=== PATIENT | female | born 1975 | race Caucasian/White ===

== ENCOUNTER 2019-02-22 22:27 | Emergency (ER) | payer MEDICARE ==
[~2019-02-22] VITALS: Ht 162.6 cm; Wt 63.5 kg
[~2019-02-22 22:27] MED LIST: BACTRIM DS TAB1 EACH PO; BACTROBAN NASAL1 GM NASAL; CLONAZEPAM 0.50.5 M1 PO; GYNODIOL0.5 MG PO; NEURONTIN 300M300 M2 PO; NORCO 5-325 TA1 EACH PO; PERCOCET 5-3251 EACH PO; PROZAC20 MG PO; SEROQUEL 25 MG25 M1 PO; VIT B12 SUBQ; WELLBUTRIN 100100 MG PO; WELLBUTRIN XL300 MG; ZANAFLEX4 MG PO; ZOFRAN ODT4 MG PO; ZYPREXA2.5 MG PO
[2019-02-22] MEDS ORDERED: CYMBALTA60 MG PO (22:57)
[2019-02-22] MEDS ORDERED: SEROQUEL 100 M100 M1 PO (22:58)
[2019-02-22] MEDS ORDERED: CLONAZEPAM 0.50.5 M1 PO ×2 (22:58→22:59)
[2019-02-22] MEDS ORDERED: AMBIEN 10 MG TA10 MG PO (22:59)
[2019-02-23] MEDS ORDERED: HYDROCODON-ACE1 EAC8 PO (02:26)
[2019-02-23] MEDS ORDERED: PHENERGAN 25 MG25 M1 PO (02:26)
[2019-02-23 02:35] VITALS: BP 113/61
== END 2019-02-23 02:35 | disposition still patient (30) ==
LOC: M.ERS 22:27
DX: G43.909 Migraine, unspecified, not intractable, without status migrainosus (principal); R42 Dizziness and giddiness; F41.9 Anxiety disorder, unspecified; F32.9 Major depressive disorder, single episode, unspecified; Z86.73 Personal history of transient ischemic attack (TIA), and cerebral infarction without residual deficits; Z90.710 Acquired absence of both cervix and uterus; Z90.49 Acquired absence of other specified parts of digestive tract

== ENCOUNTER 2019-03-20 01:59 | Emergency (ER) | payer MEDICARE ==
[~2019-03-20] VITALS: Ht 165.1 cm; Wt 67.1 kg
[~2019-03-20 01:59] MED LIST changes: +AMBIEN 10 MG TA10 MG PO; +CYMBALTA60 MG PO; +HYDROCODON-ACE1 EAC8 PO; +PHENERGAN 25 MG25 M1 PO; +SEROQUEL 100 M100 M1 PO
[2019-03-20 02:53] LABS: MPV 8.4 fl. (7.2-11.1); WBC 10.4 thou/uL (4.0-11.0)
[2019-03-20 03:00] LABS: URINE BILIRUBIN NEGATIVE (Negative); URINE BLOOD 1+ (Negative); URINE CLARITY CLEAR; URINE COLOR YELLOW; URINE GLUCOSE-RANDOM NEGATIVE (Negative); URINE KETONES NEGATIVE (Negative); URINE LEUKOCYTES NEGATIVE (Negative); URINE NITRITE NEGATIVE (Negative); URINE PROTEIN NEGATIVE (Negative); URINE SPECIFIC GRAVITY 1.025 (1.005-1.030); URINE UROBILINOGEN 0.2 E.U./dl (0.2-1.0)
[2019-03-20 03:06] LABS: HEMATOCRIT 35.7 % (37.0-47.0); HEMOGLOBIN 13.2 gm/dL (12.0-15.0); MCH 33.7 pg (26.0-34.0); MCHC 37.1 g/dL (28.0-37.0); MCV 90.8 fL (80.0-100.0); RBC 3.93 mil/uL (4.20-5.00); RDW-CV 12.8 % (10.5-14.5)
[2019-03-20 03:07] LABS: AMP/METHAMP Negative (Negative); BARBITURATES Negative (Negative); BENZODIAZEPINES POSITIVE (Negative); COCAINE Negative (Negative); METHADONE Negative (Negative); OPIATES Negative (Negative); PCP Negative (Negative); THC Negative (Negative)
[2019-03-20 03:10] LABS: CALCIUM 8.4 mg/dL (8.5-10.1); CREATININE 0.8 mg/dL (0.6-1.3); POTASSIUM 3.9 mmol/L (3.5-5.1)
[2019-03-20 03:14] LABS: ALBUMIN 3.9 g/dL (3.4-5.0); TOTAL BILIRUBIN 0.3 mg/dL (<0.1-1.0); TOTAL PROTEIN 7.3 g/dL (6.4-8.2)
[2019-03-20 03:38] LABS: SALICYLATE 5.2 mg/dL (2.8-20.0)
[2019-03-20 03:39] LABS: CASTS None Seen /LPF (None Seen); SQUAMOUS 0-3 Few /LPF (0-3)
[2019-03-20 03:40] LABS: BACTERIA 1-9 Few /HPF (None Seen); URINE RBC 3-10 Few /HPF (0-2); URINE WBC 0-5 Rare /HPF (0-5)
[2019-03-20 03:41] LABS: ACETAMINOPHEN < 2 ug/mL (10-30); ALCOHOL < 10 mg/dL (<10)
[2019-03-20 03:41] LABS: CRYSTALS None Seen /LPF (None Seen)
[2019-03-20] MEDS ORDERED: SEROQUEL 100 M100 M1 PO (10:14)
[2019-03-20] MEDS ORDERED: CLONAZEPAM 0.50.5 M1 PO (10:14)
[2019-03-20] MEDS ORDERED: AMBIEN 10 MG TA10 MG PO (10:14)
[2019-03-20 10:23] VITALS: BP 124/78
--- NOTE | 2019-03-20 10:35 | EKG ---
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1975 Requested By: Anya Jensen Order Number: [id number] MD: Dereck So Measurements Intervals [place] Rate: 61 P: 25 TN: 150 QRS: 13 QRSD: 105 T: 57 QT: 462 QTc: 466 Interpretive Statements Sinus rhythm Low voltage, extremity leads minor nonspecific st-t changes Compared to ECG 12/03/2014 23:04:18 Low QRS voltage now present Electronically Signed On 03-20-2019 10:34:28 LEGAL SPECIALIST by Dereck So [email or web address] <ELECTRONICALLY SIGNED> By: Dereck So MD, [facility] 03/20/19 1034 1 1 Dereck So MD, FACC /EPI
== END 2019-03-20 10:23 | disposition home or self-care (01) ==
LOC: M.ERS 01:59
PROVIDERS: Personal Emergency Response Attendant
DX: R45.851 Suicidal ideations (principal); R55 Syncope and collapse; F41.9 Anxiety disorder, unspecified; F32.9 Major depressive disorder, single episode, unspecified; G43.909 Migraine, unspecified, not intractable, without status migrainosus; Z86.73 Personal history of transient ischemic attack (TIA), and cerebral infarction without residual deficits; Z90.710 Acquired absence of both cervix and uterus

== ENCOUNTER 2019-09-12 16:02 | Emergency (ER) | payer MEDICARE ==
[~2019-09-12] VITALS: Ht 162.6 cm; Wt 69.4 kg
[2019-09-12] MEDS ORDERED: SUPER THERAVIT1 EACH PO (16:17)
[2019-09-12] MEDS ORDERED: ONDANSETRON ODT4 MG PO (17:07)
[2019-09-12] MEDS ORDERED: FLEXERIL PO (17:16)
[2019-09-12 17:23] VITALS: BP 119/77
== END 2019-09-12 17:23 | disposition home or self-care (01) ==
LOC: M.ERS 16:02
DX: S06.0X1A Concussion with loss of consciousness of 30 minutes or less, initial encounter (principal); S01.81XA Laceration without foreign body of other part of head, initial encounter; G43.909 Migraine, unspecified, not intractable, without status migrainosus; F41.9 Anxiety disorder, unspecified; F32.9 Major depressive disorder, single episode, unspecified; Z90.710 Acquired absence of both cervix and uterus; Z87.891 Personal history of nicotine dependence; W18.39XA Other fall on same level, initial encounter; Y93.89 Activity, other specified; Y92.59 Other trade areas as the place of occurrence of the external cause; Y99.8 Other external cause status

== ENCOUNTER 2020-12-04 20:57 | Emergency (ER) | payer MEDICARE ==
[~2020-12-04] VITALS: Ht 162.6 cm; Wt 74.8 kg
[~2020-12-04 20:57] MED LIST changes: +FLEXERIL PO; +ONDANSETRON ODT4 MG PO; +SUPER THERAVIT1 EACH PO
[2020-12-04] MEDS ORDERED: SEROQUEL 100 M100 M1 PO (21:30)
[2020-12-04] MEDS ORDERED: QUETIAPINE FUMA50 MG PO (21:30)
[2020-12-04] MEDS ORDERED: INTERMEZZO3.5 MG PO (21:31)
[2020-12-04] MEDS ORDERED: CYMBALTA30 MG PO (21:33)
[2020-12-04] MEDS ORDERED: COMPAZINE10 M2 PO (23:13)
[2020-12-04 23:40] VITALS: BP 108/57
--- NOTE | 2020-12-05 12:20 | EKG ---
[place] [address] ELECTROCARDIOGRAM REPORT Name: JENNIFER GRANTNA BJIU Room: 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
== END 2020-12-04 23:42 | disposition home or self-care (01) ==
LOC: M.ERS 20:57
DX: G43.909 Migraine, unspecified, not intractable, without status migrainosus (principal); R11.2 Nausea with vomiting, unspecified; R47.81 Slurred speech; R53.1 Weakness; F41.9 Anxiety disorder, unspecified; F32.9 Major depressive disorder, single episode, unspecified; Z90.711 Acquired absence of uterus with remaining cervical stump; Z86.73 Personal history of transient ischemic attack (TIA), and cerebral infarction without residual deficits; Z79.899 Other long term (current) drug therapy

== ENCOUNTER 2021-01-29 20:55 | Emergency (ER) | payer MEDICARE ==
[~2021-01-29] VITALS: Ht 162.6 cm; Wt 77.1 kg
--- NOTE | ~2021-01-29 | EMS ---
[facility] [address] [place] [address] EMS Patient Care Report Name: LENORA GRANT [id number] Admission: 01/29/21 Attend Phys: Discharge: 01/30/21 Date of : 71 Report #: [id number] THIS REPORT FOR: //name// Report Transmitted: 01/30/2021 17:33 EMS Care Summary [facility] Incident 21-1202 @ 01/29/2021 20:18 Incident Location [address] [place] [address] Patient LENORA GRANT Female, 45 Years 1975 Patient Address [address] [place] [address] Patient History Behavioral/Psychiatric Disorder,Stroke/CVA, Patient Medications Zolpidem, Duloxetine, Quetiapine, Chief Complaint Respiratory Arrest Disposition Transported Lights/[facility] Dispatch Reason Unknown Problem/Person Down Transported To [facility] Narrative [facility] was toned for a 45 yr/female lips blue not breathing. An ALS mutual aid ambulance from [facility] was requested. Upon arrival PD was already on scene. She was found in her bedroom in the door way, Not breathing, compressions in progress. I checked for a carotid pulse and did not feel one. She was moved out of bedroom and to the living room. continued CPR, did another pulse check and felt a Carotid pulse. AED patches were applied. Respirations [facility] [address] [place] [address] EMS Patient Care Report Name: LENORA GRANT Room: [facility] Татьяна#: [id number] Admission: 01/29/21 Attend Phys: Discharge: 01/30/21 Date of : 71 Report #: [id number] administered via BVM with oxygen at 15L/min vital signs were obtained. Blood Sugar of 227 was obtained. When checking for a pulse a 9mm shell casing was found in the crease of her neck and a Rapid trauma assessment was performed with no findings. It was later determined that it was PD's empty shell casing. Family reports that she has complained of a headache all day today, she was really weak and family member was helping her out of her clothes when her lips went blue and she became unresponsive. They called 911 immediately after. They also report that she has no drug history but has had a suicide attempt, about a year ago she tried to commit suicide by hanging herself. She has also had a stroke in 2016. Pt was moved to cot, safety restraints applied and taken to ambulance. Manual respirations were continued, 1mg of Narcan was given in each nostril and Transport was initiated en route towards [facility] direction for ALS intercept. An NPA was put in Right nostril and pt started to wake up. [facility] was disregarded and we then continued en route emergent to [facility]. Pt started to become alert via painfull stimuli, her oxygen saturation came up and Respirations became assisted with BVM. She started waking up the closer we got to the hospital. she started asking questions and was confused. She was moved from laying supine to Semi fowlers. She was taken off BVM and NRB applied. She has no recollection of what happened, she remembers not feeling well but could not specify any further. The last thing she remembers is laying in bed around noon today. Pt vomited and was given an emesis bag. She was able to maintain her own airway. NPA was taken out and nasal cannula applied. Pt denies being in any pain and denies any drug abuse. Radio report was given to [facility] and pt was continuously monitored. Upon arriving at hospital pt was transferred out of ambulance and to ED room 2. Hospital staff helped move pt from cot to bed without incident. Report and transfer of care was given to PATRICK Nelson. Initial Vitals @20:47P: 100,R: 14,BP: 123/57,GCS: 14,SpO2: 92,Revised Trauma: 12, @20:40GCS: 5, @20:25P: 103,R: 12,BP: 168/90,GCS: 3,Glucose: 227,SpO2: 92,Revised Trauma: 8, @20:26P: 108,R: 12,BP: 163/102,GCS: 3,SpO2: 91,Revised Trauma: 8, @20:28P: 106,R: 12,BP: 155/99,SpO2: 100, @20:35P: 96,R: 12,BP: 172/134,GCS: 5,SpO2: 100,Revised Trauma: 9, Impression [place] [address] EMS Patient Care Report Name: LENORA GRANT Room: [facility] CLAIRE Vaz#: [id number] Admission: 01/29/21 Attend Phys: Discharge: 01/30/21 Date of : 71 Report #: [id number] @20:34 Naloxone - 2 Milligrams (mg) - Intranasal Response: Improved @20:36 NPA Response: ImprovedSucceeded @20:21 Oxygen FlowRate: 15 Device: Bag Valve Mask (BVM) Response: ImprovedSucceeded Timeline 20:15,Call Received 20:18,Dispatched 20:20,En Route 20:21,At Patient 20:21,On Scene 20:21,Oxygen FlowRate: 15 Device: Bag Valve Mask (BVM) Response: ImprovedSucceeded, 20:25,BP: 168/90 M,PULSE: 103,RR: 12 R,SPO2: 92 Ox,ETCO2: ,B,PAIN: ,GCS: 3, 20:26,BP: 163/102 M,PULSE: 108,RR: 12 R,SPO2: 91 Ox,ETCO2: ,BG: ,PAIN: ,GCS: 3, 20:28,BP: 155/99 M,PULSE: 106,RR: 12 R,SPO2: 100 Ox,ETCO2: ,BG: ,PAIN: ,GCS: , 20:34,Naloxone - 2 Milligrams (mg) - Intranasal,Response: Improved 20:35,Depart Scene 20:35,BP: 172/134 M,PULSE: 96,RR: 12 R,SPO2: 100 Ox,ETCO2: ,BG: ,PAIN: ,GCS: 5, 20:36,NPA Response: ImprovedSucceeded, 20:40,BP: / M,PULSE: ,RR: R,SPO2: Ox,ETCO2: ,BG: ,PAIN: ,GCS: 5, 20:47,BP: 123/57 M,PULSE: 100,RR: 14 R,SPO2: 92 Ox,ETCO2: ,BG: ,PAIN: ,GCS: 14, 20:52,At Destination 20:55,Transfer Patient 21:27,Call Closed 21:27,In District Disclaimer v1.1 Copyright 2020 [employer] This EMS Care Summary contains data elements from the applicable legal record (which may be displayed differently). It is designed to provide pertinent information for the following purposes: continuity of care, clinical quality, and state data reporting. The complete legal record is available to ED staff and administrators of the receiving hospital in [employer]'s Patient Tracker. All data is provided "as is."
[~2021-01-29 20:55] MED LIST changes: +COMPAZINE10 M2 PO; +CYMBALTA30 MG PO; +INTERMEZZO3.5 MG PO; +QUETIAPINE FUMA50 MG PO
[2021-01-29 21:36] LABS: HEMATOCRIT 34.6 % (37.0-47.0); HEMOGLOBIN 12.1 gm/dL (12.0-15.0); MCHC 34.9 g/dL (28.0-37.0); MPV 8.1 fl. (7.2-11.1); RBC 3.89 mil/uL (4.20-5.00); RDW-CV 15.2 % (10.5-14.5); WBC 16.2 thou/uL (4.0-11.0)
[2021-01-29 21:45] LABS: CALCIUM 8.6 mg/dL (8.5-10.1); CREATININE 0.9 mg/dL (0.6-1.3); POTASSIUM 3.2 mmol/L (3.5-5.1)
[2021-01-29 21:50] LABS: ALBUMIN 3.4 g/dL (3.4-5.0); TOTAL BILIRUBIN 0.1 mg/dL (<0.1-1.0); TOTAL PROTEIN 7.4 g/dL (6.4-8.2)
[2021-01-29 22:28] LABS: SALICYLATE 3.1 mg/dL (2.8-20.0)
[2021-01-29 22:29] LABS: ACETAMINOPHEN < 2 ug/mL (10-30); ALCOHOL < 10 mg/dL (<10)
[2021-01-29 23:43] LABS: URINE BILIRUBIN NEGATIVE (Negative); URINE BLOOD 3+ (Negative); URINE CLARITY CLEAR; URINE COLOR YELLOW; URINE GLUCOSE-RANDOM NEGATIVE (Negative); URINE KETONES NEGATIVE (Negative); URINE LEUKOCYTES NEGATIVE (Negative); URINE NITRITE NEGATIVE (Negative); URINE PROTEIN NEGATIVE (Negative); URINE SPECIFIC GRAVITY 1.025 (1.005-1.030); URINE UROBILINOGEN 0.2 E.U./dl (0.2-1.0)
[2021-01-29 23:51] LABS: AMP/METHAMP Negative (Negative); BARBITURATES Negative (Negative); BENZODIAZEPINES POSITIVE (Negative); COCAINE Negative (Negative); METHADONE Negative (Negative); OPIATES POSITIVE (Negative); PCP Negative (Negative); THC Negative (Negative)
[2021-01-30 01:15] VITALS: BP 118/60
[2021-01-30 01:17] LABS: HYALINE CASTS 0-3 Few /LPF (None Seen); MUCUS 0-3 Light strn/LPF (None Seen); SQUAMOUS 0-3 Few /LPF (0-3)
[2021-01-30 01:18] LABS: BACTERIA 1-9 Few /HPF (None Seen); CRYSTALS None Seen /LPF (None Seen); URINE RBC >20 Many /HPF (0-2); URINE WBC 0-5 Rare /HPF (0-5)
--- NOTE | 2021-01-30 09:56 | EKG ---
[place] [address] ELECTROCARDIOGRAM REPORT Name: LENORA GRANT Room: [facility]#: [id number] Admission: 01/29/21 Attend Phys: Discharge: 01/30/21 Date of : 71 Date of Service: 01/29/212057 Report #: [id number] THIS REPORT FOR: //name// [facility] ED Test Date: 2021-01-29 Test Time: 20:58:44 Pat Name: LENORA GRANT Department: Room: Gender: Alteration Hand: : 1975 Requested By: Anya Jensen Order Number: [id number] MD: Dereck So Measurements Intervals [place] Rate: 79 P: 35 CO: 175 QRS: 3 QRSD: 122 T: 101 QT: 412 QTc: 473 Interpretive Statements Sinus rhythm Nonspecific intraventricular conduction delay Nonspecific T abnrm, anterolateral leads Compared to ECG 12/04/2020 21:09:10 Intraventricular conduction delay now present Electronically Signed On 01-30-2021 9:56:38 FISHER TRAP by Dereck So [email or web address] <ELECTRONICALLY SIGNED> By: Dereck So MD, FAC 01/30/21 0956 57 57 Dereck So MD, [facility] /EPI
== END 2021-01-30 01:17 | disposition home or self-care (01) ==
LOC: M.ERS 20:55
PROVIDERS: Personal Emergency Response Attendant
DX: T50.901A Poisoning by unspecified drugs, medicaments and biological substances, accidental (unintentional), initial encounter (principal); F19.90 Other psychoactive substance use, unspecified, uncomplicated; F41.9 Anxiety disorder, unspecified; F32.9 Major depressive disorder, single episode, unspecified; G43.909 Migraine, unspecified, not intractable, without status migrainosus; Z90.710 Acquired absence of both cervix and uterus; Z90.49 Acquired absence of other specified parts of digestive tract; Z79.899 Other long term (current) drug therapy; Y92.89 Other specified places as the place of occurrence of the external cause